=== PATIENT | male | born 1990 | race Two or more races ===

== ENCOUNTER 2018-06-30 12:00 | Emergency (ER) | payer OTHER ==
[2018-06-30 12:21] VITALS: BP 119/68; PULSE 66; TEMP 98; BMI 25.3
--- NOTE | 2018-06-30 13:38 | PDOC ---
History of Present Illness - General Chief Complaint: Injury Stated Complaint: INJURY Time Seen by Provider: 06/30/18 12:52 History Source: Patient Exam Limitations: No Limitations - History of Present Illness Initial Comments: 06/30/18 13:34 28-year-old male status post injury to his left foot. Patient states was carrying something when he fell landing on his foot. Patient now complaining of pain to his first and second toe. Patient denies previous injury to the affected area. Timing/Duration: 1-3 hours Severity: mild Associated Symptoms: reports: denies symptoms Past History - Travel Traveled outside of the country in the last 30 days: No - Past Medical History Allergies/Adverse Reactions: Allergies Allergy/AdvReac Type Severity Reaction Status Date / Time No Known Allergies Allergy Verified 06/30/18 12:21 Home Medications: Ambulatory Orders NK [No Known Home Medication] 06/30/18 COPD: No - Suicide/Smoking/Psychosocial Hx Smoking Status: Yes Smoking History: Former smoker Have you smoked in the past 12 months: No Number of Cigarettes Smoked Daily: 1 Information on smoking cessation initiated: No Hx Alcohol Use: No Drug/Substance Use Hx: No Substance Use Type: None Patient Lives Alone: No Lives with/in: spouse/SO Review of Systems - Review of Systems Able to Perform ROS?: No Constitutional: No: Symptoms Reported Musculoskeletal: Yes: Joint Pain (left toes) Integumentary: Yes: Bruising Neurological: No: Symptoms reported, Tingling Hematologic/Lymphatic: No: Symptoms Reported *Physical Exam - Vital Signs Last Vital Signs Temp Pulse Resp BP Pulse Ox 98.0 F 66 18 119/68 100 06/30/18 12:17 06/30/18 12:17 06/30/18 12:17 06/30/18 12:17 06/30/18 12:17 - Physical Exam General Appearance: Yes: Nourished, Appropriately Dressed. No: Apparent Distress Integumentary: positive: Bruising (over the left first and second toes. no edema. No decreased range of motion) Neurologic: positive: Motor Strength 5/5 (ambulatory) ED Treatment Course - RADIOLOGY Radiology Studies Ordered: Category Date Time Status TOE(S) LEFT [RAD] Stat Radiology 06/30/18 12:54 Ordered Medical Decision Making - Medical Decision Making 06/30/18 13:06 Status post injury to left foot complaining of left toe pain after something heavy fell on it. Patient was ordered for an x-ray to rule out fracture. 06/30/18 13:37 X-ray negative for fracture. Patient recommended take Motrin apply ice and rest. *DC/Admit/Observation/Transfer Diagnosis at time of Disposition: Contusion of toe of left foot - Discharge Dispostion Disposition: HOME Condition at time of disposition: Good - Referrals - Patient Instructions Printed Discharge Instructions: DI for Contusion Additional Instructions: May take Motrin 400 mg every 8 hours for discomfort and inflammation. Apply ice to the affected areas much as tolerated for the next 72 hours. Wear comfortable wearing shoes - Post Discharge Activity
== END 2018-06-30 13:43 | disposition home or self-care (01) ==
LOC: JERFT 12:00
DX: S90.32XA Contusion of left foot, initial encounter (principal); W18.30XA Fall on same level, unspecified, initial encounter; Y93.89 Activity, other specified; Y92.89 Other specified places as the place of occurrence of the external cause; Y99.8 Other external cause status
CPT/HCPCS: 73660-TC-LT-FY; 99281-25